=== PATIENT | male | born 1970 | race Two or more races ===

== ENCOUNTER 2020-06-17 13:32 | Inpatient (IN) | payer OTHER ==
[~2020-06-17] VITALS: Ht 185.4 cm; Wt 107.8 kg
[2020-06-17] MEDS ORDERED: SODIUM CHLORIDE 0.9% 1,000 ML IV ONE (14:30)
[2020-06-17] MEDS ORDERED: ACETAMINOPHEN 325 MG TAB PO ONE (14:30)
[2020-06-17 15:13] LABS: Basophils # (auto) 0.1 10 ^3/uL (0-0.2); Basophils % (auto) 0.3 % (0.0-2.0); Eosinophils # (auto) 0 10 ^3/uL (0-0.8); Eosinophils % (auto) 0.2 % (0.0-7.0); Hematocrit 52.2 % (41.0-53.0); Hemoglobin 17.3 g/dL (13.5-17.5); Lymphocytes # (auto) 2.3 10 ^3/uL (0.4-5.4); Lymphocytes % (auto) 10.3 % (10.0-50.0); Mean Corpuscular Hemoglobin 30.7 pg (28.0-32.0); Mean Corpuscular Hgb Conc. 33.1 g/dL (32.0-36.0); Mean Corpuscular Volume 92.8 fL (80.0-100.0); Monocytes # (auto) 1.4 10 ^3/uL (0-1.3); Monocytes % (auto) 6.1 % (0.0-12.0); Neutrophils # (auto) 18.6 10 ^3/uL (1.6-8.6); Neutrophils % (auto) 83.1 % (37.0-80.0); Platelet Count (auto) 269 10^3/uL (140-450); Red Blood Cells 5.62 10^6/uL (4.5-5.90); Red Cell Distribution Width 13.5 % (11.8-14.3); White Blood Cell 22.3 10^3/uL (4.4-10.8)
[2020-06-17] MEDS ORDERED: SODIUM CHLORIDE 0.9% 1,000 ML IVB ONE (15:26)
[2020-06-17] MEDS ORDERED: cefTRIAXone 1GM/50ML D5W 50 ML IV ONE (15:30)
[2020-06-17 15:32] LABS: BUN/Creatinine Ratio 15.2; Calcium 9.5 mg/dL (8.5-10.1); Potassium 3.9 mmol/L (3.5-5.1)
[2020-06-17 15:33] LABS: Lactic Acid w/Reflex 2.1 mmol/L (0.4-2.0)
[2020-06-17 15:34] LABS: Bilirubin, Total 0.6 mg/dL (0.2-1.0); Total Protein 8.8 g/dL (6.4-8.2)
[2020-06-17] MEDS: SODIUM CHLORIDE 0.9% 1,000 ML IV SCH ×2 (15:51→23:33)
[2020-06-17] MEDS ORDERED: TEMAZEPAM 15 MG CAP PO PRN (16:00)
[2020-06-17] MEDS ORDERED: MORPHINE SULF INJ 2 MG/ML SYRINGE 1ML IV PRN ×2 (16:00)
[2020-06-17] MEDS ORDERED: PIPERACILLIN-TAZOB 3.375GM 100 ML IV ONE (16:00)
[2020-06-17] MEDS ORDERED: ENOXAPARIN SOD 40 MG/0.4 ML SYRINGE SC ONE (16:00)
[2020-06-17] MEDS ORDERED: DEXTROSE (50%) 50ML SYRG IV PRN (16:00)
[2020-06-17] MEDS ORDERED: SODIUM CHLORIDE 0.9% 3,650 ML IV ONE (16:00)
[2020-06-17] MEDS ORDERED: NITROGLYCERIN 0.4 MG SL TAB SL PRN (16:00)
[2020-06-17] MEDS ORDERED: PROMETHAZINE HCL 25 MG/ML 1ML IV PRN (16:00)
[2020-06-17] MEDS ORDERED: traMADol HCL 50 MG TAB PO PRN (16:00)
[2020-06-17] MEDS ORDERED: CLINDAMYCIN 900MG IV 50 ML IV ONE (16:00)
[2020-06-17] MEDS ORDERED: ACETAMINOPHEN 500 MG TAB PO PRN (16:00)
[2020-06-17 16:03] LABS: Urine Bacteria NONE SEEN /hpf (None Seen); Urine Blood 3+ /uL (Negative); Urine WBC 143 /hpf (0 - 3)
[2020-06-17 16:18] LABS: INR 1.08 (0.9-1.15); Partial Thromboplastin Time 32.8 sec (23.64-32.05)
[2020-06-17] MEDS: ACCU-CHEK COMFORT CURVE STRIP VI SCH ×2 (17:00→22:05)
[2020-06-17] MEDS: InsuLIN REG 1unit/0.01ml Soln (100units/ml) SC SCH ×2 (17:00→22:00)
[2020-06-17] MEDS ORDERED: IOHEXOL 300 MG/ML 100ML BOTTLE IJ ONE (17:18)
--- NOTE | 2020-06-17 20:30 | NUR ---
Patient arrived on unit Patient arrived on unit at 2030. Patient A&Ox4. No s/s of distress or pain. Safety measures maintained by keeping bed locked in lowest position, 2 side rails up, personal items and call light within reach. Patient oriented to unit, bed, call light, bathroom, and plan of care. Will continue to monitor. Was told by transportation dispatch manager that medications were not given. Called pharmacy to make sure which medications should be given at this time.
[2020-06-17] MEDS: CLINDAMYCIN 600MG IV 50 ML IV SCH (21:42)
[2020-06-17] MEDS: FAMOTIDINE 20 MG TAB PO SCH (21:43)
[2020-06-17 22:00] VITALS: BP 125/66
[2020-06-17] MEDS: PIPERACILLIN-TAZOB 3.375GM 100 ML IV SCH (22:53)
[2020-06-17 23:30] VITALS: BP 125/66
[2020-06-18] MEDS ORDERED: PNEUMOCOCCAL VACC POLYS 25 MCG/0.5 ML VIAL IM ONE (01:15)
[2020-06-18] MEDS ORDERED: IBUP800T24 PO (01:50)
[2020-06-18] MEDS ORDERED: SITA25TA3 PO (01:50)
[2020-06-18] MEDS ORDERED: ATOR40TA52 PO (01:50)
[2020-06-18] MEDS: PIPERACILLIN-TAZOB 3.375GM 100 ML IV SCH ×4 (02:25→21:08)
[2020-06-18 05:39] VITALS: BP 122/69
[2020-06-18] MEDS: CLINDAMYCIN 600MG IV 50 ML IV SCH (05:52)
[2020-06-18] MEDS: InsuLIN REG 1unit/0.01ml Soln (100units/ml) SC SCH ×4 (06:10→21:39)
[2020-06-18] MEDS: ACCU-CHEK COMFORT CURVE STRIP VI SCH ×4 (06:10→21:39)
--- NOTE | 2020-06-18 08:00 | NUR ---
Morning note Patient resting in bed with even and unlabored respirations, no distress noted. Instructed patient on POC, fall precautions and to call for assistance as needed. Patient verbalized understanding. Fall precautions in place with call light within reach.
[2020-06-18 08:04] LABS: Hematocrit 46.9 % (41.0-53.0); Hemoglobin 15.3 g/dL (13.5-17.5); Mean Corpuscular Hemoglobin 30.7 pg (28.0-32.0); Mean Corpuscular Hgb Conc. 32.7 g/dL (32.0-36.0); Mean Corpuscular Volume 93.8 fL (80.0-100.0); Platelet Count (auto) 230 10^3/uL (140-450); Red Cell Distribution Width 13.7 % (11.8-14.3)
[2020-06-18 08:18] LABS: Albumin 3.4 g/dL (3.4-5.0); Calcium 8.8 mg/dL (8.5-10.1); Potassium 3.8 mmol/L (3.5-5.1)
[2020-06-18 08:22] LABS: BUN/Creatinine Ratio 15.2; Bilirubin, Total 1.2 mg/dL (0.2-1.0); Total Protein 7.8 g/dL (6.4-8.2)
[2020-06-18 08:36] LABS: Blast Cells 0; Eosinophils % (manual) 0 (0-7); Metamyelocytes % 0; Myelocytes % 0; Promyelocytes % 0; Reactive Lymphocytes 0
[2020-06-18 09:00] VITALS: BP 131/73
[2020-06-18 09:04] LABS: Band Neutrophils % (manual) 1; Basophils % (manual) 1 (0.0-2.0); Lymphocytes % (manual) 15 (10.0-50.0); Monocytes % (manual) 10 (0-12)
[2020-06-18] MEDS: ENOXAPARIN SOD 40 MG/0.4 ML SYRINGE SC SCH (10:00)
[2020-06-18] MEDS: FAMOTIDINE 20 MG TAB PO SCH ×2 (10:00→21:18)
[2020-06-18 13:00] VITALS: BP 120/69
--- NOTE | 2020-06-18 15:56 | NUR ---
Pageshoshana Maxwell RE: POC Addendum: 06/18/20 at 1559 by Tri Traylor RN Spoke with RE: POC. VERDUGO is waiting for urine culture results.
[2020-06-18 17:00] VITALS: BP 131/68
--- NOTE | 2020-06-18 18:26 | NUR ---
Closing note Patient resting in bed with even and unlabored respirations, no distress noted. Fall precautions in place with call light within reach.
--- NOTE | 2020-06-18 19:27 | NUR ---
Care endorsed to DENISHA Giron.
--- NOTE | 2020-06-18 19:30 | NUR ---
Opening Shift Note Assumed care of patient, awake and alert. Patient laying down in bed. A&Ox4. Safety measures maintained by keeping the bed locked in lowest position, 2 side rails up, personal items and call light within reach. No S/S of distress/SOB or pain. Instructed on POC and to call for assist PRN, will continue to monitor for changes Q1hr and PRN.
[2020-06-18 23:32] VITALS: BP 133/75
[2020-06-19] MEDS: PIPERACILLIN-TAZOB 3.375GM 100 ML IV SCH ×3 (02:56→14:43)
[2020-06-19 05:35] VITALS: BP 127/74
[2020-06-19] MEDS: ACCU-CHEK COMFORT CURVE STRIP VI SCH ×2 (06:22→11:49)
[2020-06-19] MEDS: InsuLIN REG 1unit/0.01ml Soln (100units/ml) SC SCH ×2 (06:22→11:30)
[2020-06-19 07:45] LABS: Basophils # (auto) 0 10 ^3/uL (0-0.2); Basophils % (auto) 0.3 % (0.0-2.0); Eosinophils # (auto) 0.1 10 ^3/uL (0-0.8); Eosinophils % (auto) 0.8 % (0.0-7.0); Hematocrit 50.7 % (41.0-53.0); Hemoglobin 16.5 g/dL (13.5-17.5); Lymphocytes # (auto) 2.7 10 ^3/uL (0.4-5.4); Lymphocytes % (auto) 20.7 % (10.0-50.0); Mean Corpuscular Hemoglobin 30.7 pg (28.0-32.0); Mean Corpuscular Hgb Conc. 32.6 g/dL (32.0-36.0); Mean Corpuscular Volume 94.2 fL (80.0-100.0); Monocytes # (auto) 0.8 10 ^3/uL (0-1.3); Monocytes % (auto) 6.1 % (0.0-12.0); Neutrophils # (auto) 9.4 10 ^3/uL (1.6-8.6); Neutrophils % (auto) 72.1 % (37.0-80.0); Nucleated Red Blood Cells % 0.1 %; Platelet Count (auto) 233 10^3/uL (140-450); Red Blood Cells 5.38 10^6/uL (4.5-5.90); Red Cell Distribution Width 13.5 % (11.8-14.3); White Blood Cell 13.1 10^3/uL (4.4-10.8)
[2020-06-19 08:05] LABS: Lactic Acid w/Reflex 3.3 mmol/L (0.4-2.0)
--- NOTE | 2020-06-19 08:35 | NUR ---
Called microbiology per MD order Spoke with Nubia. Received identification and susceptibility of urine culture.
[2020-06-19 08:36] VITALS: BP 143/79
[2020-06-19] MEDS: FAMOTIDINE 20 MG TAB PO SCH (09:14)
[2020-06-19] MEDS: ENOXAPARIN SOD 40 MG/0.4 ML SYRINGE SC SCH (09:14)
--- NOTE | 2020-06-19 10:43 | NUR ---
was at bedside - Dr. Maxwell POC discussed with this RN.
[2020-06-19] MEDS ORDERED: CIPR-173 PO (12:26)
[2020-06-19 13:02] VITALS: BP 140/92
--- NOTE | 2020-06-19 14:45 | NUR ---
RE: PNA Vaccination Vaccination administered with aseptic technique. Patient tolerated well, no trauma to site.
--- NOTE | 2020-06-19 14:52 | NUR ---
Discharge Discharge education and paperwork provided to the patient per MD order. Patient verbalized understanding. Patient instructed on discharge prescription at [facility] and to sisal picker prior to leaving hospital. Patient verbalized understanding. IV removed with clean technique, catheter intact. Dressing applied. Patient tolerated well, no trauma to site. Telemonitor removed and returned. No irritation noted at vaccination site. Patient reports having all personal belongings. Respirations even and unlabored, no distress noted. Patient refused wheelchair. Patient ambulated with a steady gait to hospital lobby to [facility] accompanied by staff member.
== END 2020-06-19 14:52 | disposition home or self-care (01) | DRG 872 ==
LOC: ER 13:32 → TELE 13:33 → TELE-WESTW 20:53
PROVIDERS: ADMIT Internal Medicine; ATTEND Internal Medicine Nephrology
DX: A41.9 Sepsis, unspecified organism (principal); K65.4 Sclerosing mesenteritis; N30.00 Acute cystitis without hematuria; N20.0 Calculus of kidney; I10 Essential (primary) hypertension; R65.20 Severe sepsis without septic shock; K76.0 Fatty (change of) liver, not elsewhere classified; R16.0 Hepatomegaly, not elsewhere classified; E11.9 Type 2 diabetes mellitus without complications; E78.5 Hyperlipidemia, unspecified; E66.01 Morbid (severe) obesity due to excess calories; K63.89 Other specified diseases of intestine; N40.0 Benign prostatic hyperplasia without lower urinary tract symptoms; Z79.899 Other long term (current) drug therapy; Z82.49 Family history of ischemic heart disease and other diseases of the circulatory system; Z83.3 Family history of diabetes mellitus; Z68.35 Body mass index [BMI] 35.0-35.9, adult
CPT/HCPCS: 36415; 71046; 74176; 74177; 80053; 81001; 82962; 83036; 83605; 83735; 85007; 85025; 85027; 85610; 85730; 86141; 87040; 87086; 87088; 87186; 93005; 96361; 96365; G0378; J0696; J1815; J2543; J3490

== ENCOUNTER 2022-01-31 09:10 | Emergency (ER) | payer SELFPAY ==
[~2022-01-31] VITALS: Ht 182.9 cm; Wt 117.9 kg
[~2022-01-31 09:10] MED LIST: ATOR40TA52 PO; CIPR-173 PO; SITA25TA3 PO
[2022-01-31 09:44] VITALS: BP 155/92
[2022-01-31] MEDS ORDERED: KETOROLAC TROMETH 60MG/2ML VIAL IM ONE (09:45)
== END 2022-01-31 10:37 | disposition home or self-care (01) ==
LOC: ER 09:10 → EDBD 09:10 → ER 10:37
DX: S76.011A Strain of muscle, fascia and tendon of right hip, initial encounter (principal); S46.912A Strain of unspecified muscle, fascia and tendon at shoulder and upper arm level, left arm, initial encounter; E11.9 Type 2 diabetes mellitus without complications; E78.5 Hyperlipidemia, unspecified; I10 Essential (primary) hypertension; V43.52XA Car driver injured in collision with other type car in traffic accident, initial encounter; Y93.89 Activity, other specified; Y92.488 Other paved roadways as the place of occurrence of the external cause; Y99.8 Other external cause status
CPT/HCPCS: 73030; 73502; 96372; 99284; J1885